=== PATIENT | male | born 1970 | race Caucasian/White ===

== ENCOUNTER → 2017-02-12 | Outpatient (CLI) | payer BC ==
--- NOTE | 2017-02-12 22:09 | PN ---
DATE OF SERVICE: 02/12/2017 This is a 46-year-old gentleman who has been followed in the sleep center for treatment of obstructive sleep apnea/hypopnea syndrome. I checked patient's CPAP unit. Patient continued to use equipment very well, 26 out of 30 nights for more than 4 hours. I checked data for 3 months; use for more than 4 hours was 80 out of 99. Average apnea-hypopnea index reading for 3 months is 5.8, which is in the acceptable range. Leak is around 16 L/minute, which is acceptable. [place] Sleepiness Scale today is 5, which is normal. MEDICATIONS: None. During physical exam, patient is in no distress. VITAL SIGNS: BP 104/65, HR 59, RR 14. Height 72 inches. Weight 189.4. BMI 25.6. Temperature 97.5. Oxygen saturation at room air 96%. HEENT: PERRLA, EOMI. Evaluation of oropharynx showed tongue protrudes midline; moderately low position of soft palate. NECK: Supple. No JVD. Thyroid is not palpable. LUNGS: Clear to percussion and to auscultation. Good air exchange. No wheezing or rhonchi. HEART: S1, S2 regular. No murmurs, gallops or rubs. ABDOMEN: Soft and nontender. Bowel sounds are present. No organomegaly appreciated. EXTREMITIES: No clubbing or cyanosis. CIRCULATION MAN: Awake, alert, and oriented x3. Cranial nerves 2 to 7 intact. There is no fasciculation or atrophy noted. No focal deficits observed. IMPRESSION: 1. Moderate obstructive sleep apnea-hypopnea syndrome. Apnea-hypopnea index 17.7, mostly under control with CPAP at 9 cm of water. Patient has demonstrated good compliance with treatment, benefitting from treatment. 2. Seasonal allergies. 3. History of erectile dysfunction. 4. Status post tonsillectomy. 5. Possible nasal septum deviation. PLAN: 1. Continue treatment with CPAP at the same pressure of 9 cm of water. 2. Watching weight. 3. Sleep hygiene with regular time in bed for at least 8 hours. 4. No driving if feeling any sleepiness. 5. Prescription for all necessary supplies. Thank you very much for allowing me to participate in the management of your patient. Sincerely, Dallas Dorman MD, PhD, FAASM. Diplomat of [place] Board [employer] Medicine, Sleep Medicine Board by [place] [employer], [place] Board of Internal Medicine
== END | disposition home or self-care (01) ==
LOC: SLEEP 14:19
PROVIDERS: ATTEND Internal Medicine
DX: G47.33 Obstructive sleep apnea (adult) (pediatric) (principal); Z99.89 Dependence on other enabling machines and devices

== ENCOUNTER → 2018-03-19 | Outpatient (CLI) | payer BC ==
--- NOTE | 2018-03-19 11:09 | SFUN ---
SLEEP CENTER FOLLOW UP NOTE DATE OF SERVICE: 03/19/2018 This 47-year-old gentleman has been followed in sleep center for treatment of moderate obstructive sleep apnea-hypopnea syndrome. The patient was started on treatment with CPAP in 2016, and he is on that therapy practically every night without significant problem except sometimes when he has the flu he cannot breathe through his nose. [place] Sleepiness Scale today is 3. Patient medication is Cialis occasionally. I checked patient's CPAP unit. CPAP pressure 9 cm of water as it was recommended after the last titration. Usage 23 out of 30 nights for more than 4 hours, which is normal range of usage. Average usage 6.3 hours. Leak is 14 L/minute, which is acceptable. Apnea-hypopnea index 3.5, which is in normal range. PHYSICAL EXAMINATION: During physical exam, the patient in no distress. VITAL SIGNS: BP 110/72, HR 51, RR 14, height 6 feet 0 inch, weight 192.0, BMI 26.0 oxygen saturation room air 99%. Temperature 97.7. HEENT PERRLA, EOMI, evaluation of oropharynx moderately low position of soft palate. Slight restriction of nasal breathing. NECK: Supple, no JVD. Thyroid is not palpable. LUNGS: Clear to percussion and to auscultation. Good air exchange. No wheezing or rhonchi. HEART: S1, S2 regular. No murmurs, gallops, or rubs. ABDOMEN: Soft and nontender. Bowel sounds are present. No organomegaly appreciated. EXTREMITIES: No clubbing or cyanosis. AUDIO/VISUAL MANAGER: Awake, alert, and oriented X3. Cranial nerves 2 to 7 intact. There is no fasciculation or atrophy. noted. No focal deficits observed. IMPRESSION: 1. Obstructive sleep apnea-hypopnea syndrome in moderate range. Apnea-hypopnea index 17.7, mostly on control with CPAP at 9 cm of water. Patient demonstrated good compliance with treatment. Benefitting from treatment. 2. Possible nasal septum deviation. 3. History of erectile dysfunction, slightly better on treatment with CPAP. 4. Seasonal allergies. 5. Status post tonsillectomy. PLAN: 1. Prescription for all necessary CPAP supplies including mask, tube, filters. 2. Continue CPAP therapy every night for the whole night. 3. Sleep hygiene with regular time in bed for at least 8 hours. 4. No driving if feeling sleepiness. 5. Followup visit in 1 year or earlier if patient has any problems. Thank you very much for allowing me to participate in management of your patient. Sincerely, Dallas Dorman MD, PhD, FAASM Diplomat of [place] [employer] Specialties [place] [employer] of Internal Medicine Monumental Stonemason of [facility] [place] MMODL / WAGNERN: [id number] /
== END | disposition home or self-care (01) ==
LOC: SLEEP 09:57
PROVIDERS: ATTEND Internal Medicine
DX: G47.33 Obstructive sleep apnea (adult) (pediatric) (principal); N52.9 Male erectile dysfunction, unspecified; J30.2 Other seasonal allergic rhinitis; Z99.89 Dependence on other enabling machines and devices; Z90.89 Acquired absence of other organs

== ENCOUNTER → 2019-04-01 | Outpatient (CLI) | payer BC ==
--- NOTE | 2019-04-01 17:42 | PN ---
PROGRESS NOTE DATE OF SERVICE: 04/01/2019 This patient is a 49-year-old gentleman who has been followed in Sleep Center for treatment of obstructive sleep apnea-hypopnea syndrome. Last time I saw the patient was one year ago. The patient has continued to use equipment every night for the whole night without significant problems related to mask fitting, pressure or humidification. [place] Sleepiness Scale today is 2. I checked his CPAP unit. CPAP pressure is 9 cm of water. Usage is every night, and in 28/30 nights for more than 4 hours. Average usage is 6.6 hours, which is within normal range. Leak is 18 L/minute, which is acceptable. Apnea-hypopnea index is 2.7, which is in normal range. MEDICATIONS: Cialis occasionally. PHYSICAL EXAMINATION: GENERAL: A pleasant patient in no distress. VITAL SIGNS: BP 115/70, HR 56, RR 16, height 6 feet, weight 190.4 pounds, body mass index 25.7, temperature 97.3, oxygen saturation at room air 98%. HEENT: PERRLA, EOMI. Evaluation of oropharynx showed tongue protrudes midline. Moderately low position of soft palate. NECK: Supple. No JVD. Thyroid is not palpable. LUNGS: Clear to percussion and to auscultation. Good air exchange. No wheezing or rhonchi. HEART: S1, S2 regular. No murmurs, gallops or rubs. ABDOMEN: Soft and nontender. Bowel sounds are present. No organomegaly. EXTREMITIES: No clubbing or cyanosis. SAS ANALYST: Awake, alert, and oriented X3. Cranial nerves 2 to 7 intact. There is no fasciculation or atrophy. noted. No focal deficits observed. IMPRESSION: 1. Moderate obstructive sleep apnea-hypopnea syndrome with apnea/hypopnea index of 17.7. The patient demonstrated great compliance with treatment, benefitting from treatment. 2. History of erectile dysfunction. 3. Seasonal allergies. 4. Possible nasal septum deviation. 5. Status post tonsillectomy. PLAN: 1. Patient will continue to use CPAP equipment every night for the whole night. 2. Prescription for all necessary CPAP supplies, including nasal mask, tube, filters. 3. Sleep hygiene with regular time in bed for at least 8 hours. 4. No driving if feeling any sleepiness. 5. Follow-up visit in one year, or earlier if patient has any problems. Thank you very much for allowing me to participate in the management of your patient. Sincerely, Dallas Dorman MD, PhD, FAASM Diplomat of [place] [employer] Specialties [place] Board of Internal Medicine Treating Inspector of [facility] [place] ALEJANDRA / NICANOR: [id number] /
== END ==
LOC: SLEEP 15:42
PROVIDERS: ATTEND Internal Medicine
DX: G47.33 Obstructive sleep apnea (adult) (pediatric) (principal); J30.2 Other seasonal allergic rhinitis; Z90.89 Acquired absence of other organs; Z87.438 Personal history of other diseases of male genital organs; Z99.89 Dependence on other enabling machines and devices; Z79.899 Other long term (current) drug therapy

== ENCOUNTER → 2023-07-30 | Outpatient (CLI) | payer BC ==
--- NOTE | 2023-07-30 12:30 | P.SLEEP ---
History of Present Illness DATE: 08/01/2023 CONSULTATION/NEW PATIENT EVALUATION HISTORY OF PRESENT ILLNESS/SLEEP-WAKE EVALUATION: 53-year-old gentleman had been evaluated in the sleep center for obstructive sleep apnea hypopnea syndrome. Last time I so patient in sleep center on 04/01/2019 for treatment of obstructive sleep apnea hypopnea syndrome. Patient continued to use his CPAP equipment every night for the whole night. I checked CPAP unit. CPAP pressure is 9 cm of water, usage is 100% of nights, average 8.4 hours per night. Leak is 11 L/m which is acceptable. Apnea-hypopnea index is 3.7 which is normal. SLEEP SCHEDULE: Usually sleep schedule from 10 PM to 6 AM 7 days a week. FALLING ASLEEP: No problems with falling asleep. DURING SLEEP: No snoring while using CPAP. Patient wakes up from sleep up to 3 times with nocturia. No history of hypnogogical hallucinations, sleep paralysis, or cataplexy. DURING THE DAY/WAKE STATE: In the morning patient feels refreshed. [place] sleepiness scale is 3. Patient doesn't take naps. PAST MEDICAL HISTORY: Seasonal ALLERGY. PAST SURGICAL HISTORY: Tonsillectomy, surgery for nasal septum deviation. MEDICATIONS: None at the present time. SOCIAL HISTORY: Negative for smoking, alcohol consumption occasional. FAMILY HISTORY: Heart problems, hyperlipidemia. REVIEW OF SYSTEMS: No snoring with CPAP, nocturia up to 3 times. No fevers. No double vision. No recent chest pain. No shortness of breath. No abdominal pain. No bleeding episodes. No blood in urine. No seizure episodes. PHYSICAL EXAMINATION: GENERAL: A pleasant patient without any distress. VITAL SIGNS: BP 135/79, HR 68, RR 12, weight 182.0 pounds, height 5 foot 11.5 inches, body mass index 25. HEENT: PERRLA, EOMI. Evaluation of oropharynx showed tongue protrudes midline, low position of soft palate Mallampati 3, short distance between soft palate and posterior pharyngeal wall. NECK: Supple. No JVD. Thyroid is not palpable. 15.5 inches in circumference. LUNGS: Clear to percussion and to auscultation. Good air exchange. No wheezing or rhonchi. HEART: S1, S2 regular. No murmurs, gallops or rubs. ABDOMEN: Soft and nontender. Bowel sounds are present. No organomegaly appreciated. EXTREMITIES: No clubbing or cyanosis. INSTRUCTOR PROGRAMMABLE CONTROLLERS: Awake, alert, and oriented x3. Cranial nerves 2 to 7 intact. There is no fasciculation or atrophy noted. No focal deficits observed. ASSESSMENT: 1. Obstructive sleep apnea hypopnea syndrome for many years, patient continued to use his CPAP equipment every night for the whole night. CPAP unit is old. 2. Seasonal ALLERGY. 3. Status post tonsillectomy. 4. Status post surgical treatment for nasal septum deviation. PLAN: 1. Prescription to replace CPAP to AutoPAP with range of pressure 8-11 cm of water. 2. Follow-up visit in 31-90 days after patient will get new CPAP equipment check compliance and make any necessary adjustments 3. Preferable position during sleep on the side. 4. No driving if patient feels any sleepiness. Patient is aware of civil and criminal liability for unsafe driving. 5. Sleep hygiene with regular sleep time for at least 7.5-8 h ours. 6. Watching weight. Thank you very much for referring this patient for consultation. Sincerely, Dallas Dorman MD, PhD, FAASM. Diplomat of [place] Board of Sleep Medicine, Sleep Medicine Board by [place] [employer] Medical Specialities [place] Board of Internal Medicine Systems Integration Advisor of [facility] [place] Past Medical History Past Medical History: Skin Disorder History of Any Multi-Drug Resistant Organisms: None Reported Past Surgical History: Tonsillectomy Past Anesthesia/Blood Transfusion Reactions: No Reported Reaction Past Alcohol Use History: Occasional Additional Past Alcohol Use History / Comment(s): 5 BEERS PER WK AVG EST Past Drug Use History: None Reported Medications and Allergies Home Medications Medication Instructions Recorded Confirmed Type tadalafiL [Cialis] 5 mg PO DIRECTED PRN 08/29/14 08/31/14 History Allergies Allergy/AdvReac Type Severity Reaction Status Date / Time No Known Allergies Allergy Verified 08/29/14 15:24 Sleep Note - Sleep Note Sleep Note: Temperature: Pulse Rate: Respiratory Rate: Blood Pressure: SpO2: Height: Weight: BMI: Neck Circumference:
== END ==
LOC: 3 N SLEEP 10:54
PROVIDERS: ATTEND Internal Medicine
DX: G47.33 Obstructive sleep apnea (adult) (pediatric) (principal); J30.2 Other seasonal allergic rhinitis; Z98.890 Other specified postprocedural states; Z90.89 Acquired absence of other organs
CPT/HCPCS: 99202

== ENCOUNTER → 2023-11-10 | Outpatient (CLI) | payer BC ==
--- NOTE | 2023-11-10 11:02 | P.PN ---
Subjective DATE: [] FOLLOW UP VISIT. Patient with obstructive sleep apnea hypopnea syndrome return to sleep center for follow-up visit. This is first visit after patient received new CPAP equipment. Patient was able to use PAP equipment every night for the whole night. The patient does not have significant problems with the mask, PAP pressure and h umidification. [place] sleepiness scale is 3, which is normal. I checked information from PAP unit. PAP unit pressure 7-9, average 8.9 cm H2O. Usage is 100 % for more then 4 hours, average 8 hours per night. Leak is minimal 2.3 l/m. Apnea Hypopnea Index is 3.0, which is normal. MEDICATIONS: None at the present time During physical exam: GENERAL: A pleasant patient without any distress. VITAL SIGNS: BP 122/80, HR 59, RR 16 , weight 190.2, temperature 98.5, oxygen saturation at room air 99% . HEENT: PERRLA, EOMI.low position of soft palate, Mallapati 3 . NECK: Supple. No JVD. LUNGS: Clear to percussion and to auscultation. Good air exchange. No wheezing or rhonchi. HEART: S1, S2 regular. ABDOMEN: Soft and nontender.[] EXTREMITIES: No clubbing or cyanosis. PROFESSIONAL POKER PLAYER: Awake, alert, and oriented x3. No focal deficit. Impressions: 1. Obstructive sleep apnea-hypopnea syndrome. Patient demonstrated great compliance with treatment, benefiting from treatment. 2. Seasonal ALLERGY. 3. Status post tonsillectomy. 4. Status post surgical treatment for nasal septum deviation. Plan: 1. Continue using PAP equipment every night for the whole night. 2. To change air filter at least 1-2 times per month. 3. PAP unit should stay lower then position of the head. 4. Advised patient to remove all remaining water from humidifier canister daily and make it dry after each usage. Refill canister with fresh distilled water before each usage. 5. Sleep hygiene with regular time in bed for at least 8 hours. 6. Precautions related to driving. No driving if feel any sleepiness. 7. I will maintain prescription for PAP supplies including mask, tube, filters. 8. Follow up visit in 6 months or earlier if patient has any problems. 9. Watching weight. Thank you very much for allowing me to participate in the management of your patient. Dallas Dorman MD, PhD, FAASM. Diplomat of [place] Board of Sleep Medicine, Sleep Medicine Board by [place] Board of Internal Medicine Java Development Team Lead of [facility] [place]
== END ==
LOC: 3 N SLEEP 10:00
PROVIDERS: ATTEND Internal Medicine
DX: G47.33 Obstructive sleep apnea (adult) (pediatric) (principal); J30.2 Other seasonal allergic rhinitis; Z98.890 Other specified postprocedural states; Z90.89 Acquired absence of other organs; Z99.89 Dependence on other enabling machines and devices
CPT/HCPCS: 99212

== ENCOUNTER → 2024-06-10 | Outpatient (CLI) | payer BC ==
[2024-06-10 10:48] VITALS: BP 119/77; PULSE 55; RESP 16; TEMP 97.6
--- NOTE | 2024-06-10 10:56 | P.PROGSL ---
Subjective DATE: 06/10/2024 FOLLOW UP VISIT. Patient with obstructive sleep apnea hypopnea syndrome return to sleep center for follow-up visit. Information from previous visit have been reviewed. Patient is using PAP equipment every night for the whole night, getting PAP supplies in time. The patient does not have significant problems with the mask, PAP unit and humidification. [place] sleepiness scale is 4, which is normal. I checked information from PAP unit. PAP unit pressure 7-9, average 8.9 cm H2O. Usage is 100% for more then 4 hours, average 7.3 hours per night. Leak is []l/m, which is in acceptable range. Apnea Hypopnea Index is 3.6, which is normal. MEDICATIONS have been reviewed, please see below. During physical exam: GENERAL: A pleasant patient without any distress. VITAL SIGNS: Please see below, weight is 176.4 lbs. HEENT: PERRLA, EOMI.low position of soft palate, Mallapati 3. NECK: Supple. No JVD. LUNGS: Clear to percussion and to auscultation. Good air exchange. No wheezing or rhonchi. HEART: S1, S2 regular. ABDOMEN: Soft and nontender.[] EXTREMITIES: No clubbing or cyanosis. COMPLIANCE REPRESENTATIVE DEALER: Awake, alert, and oriented x3. No focal deficit. Impressions: 1. Obstructive sleep apnea-hypopnea syndrome. Patient demonstrated great compliance with treatment, benefiting from treatment. 2. Seasonal allergy. 3. Status post tonsillectomy. 4. Status post surgical treatment for nasal septum deviation. Plan: 1. Continue using PAP equipment every night for the whole night. 2. Sleep hygiene with regular time in bed for at least 7.5-8 hours 3. PAP unit should stay lower then position of the head. 4. Advised patient to remove all remaining water from humidifier canister daily and make it dry after each usage. Refill canister with fresh distilled water before each usage. 5. Watching weight. 6. Precautions related to driving. No driving if feel any sleepiness. 7. I will maintain prescription for PAP supplies including mask, tube, filters. 8. Follow up visit in 6 months or earlier if patient has any problems. Thank you very much for allowing me to participate in the management of your patient. Dallas Dorman MD, PhD, FAASM. Diplomat of [place] Board of Sleep Medicine, Sleep Medicine Board by [place] Board of Internal Medicine Digital Print Operator of [facility] [place] Objective - Vital Signs Vital Signs: Vital Signs Temp 97.6 F 06/10/24 10:47 Pulse 55 L 06/10/24 10:47 Resp 16 06/10/24 10:47 BP 119/77 06/10/24 10:47 Pulse Ox 99 06/10/24 10:47 FiO2 Intake & Output 06/09/24 06/10/24 06/10/24 18:59 06:59 18:59 Weight 79.832 kg Home Medications: Home Medications Medication Instructions Recorded Confirmed Type tadalafiL [Cialis] 5 mg PO DIRECTED PRN 08/29/14 08/31/14 History
== END ==
LOC: 3 N SLEEP 10:37
PROVIDERS: ATTEND Internal Medicine
DX: G47.33 Obstructive sleep apnea (adult) (pediatric) (principal); J30.2 Other seasonal allergic rhinitis; Z98.890 Other specified postprocedural states; Z90.89 Acquired absence of other organs; Z99.89 Dependence on other enabling machines and devices
CPT/HCPCS: 99212

== ENCOUNTER 2024-10-08 12:24 | Day surgery (SDC) | payer BC ==
[2024-10-06 16:17] VITALS: BMI 24.4
[2024-10-08 13:22] VITALS: RESP 16; TEMP 97.5
[2024-10-08] MEDS: IV FLUID CONTINUATION 1,000 ML IV ONE (13:22)
[2024-10-08] MEDS: LACTATED RINGERS 1,000 ML IV SCH (13:23)
[2024-10-08] MEDS ORDERED: PROPOFOL 10 MG/ML 20 ML VIAL IV ONE (13:57)
[2024-10-08] MEDS ORDERED: LIDOCAINE 1% INJ 10MG/ML (20 ML MDV) ONE (13:57)
--- NOTE | 2024-10-08 14:20 | P.PCN ---
Date of Procedure: 10/08/24 Procedure(s) Performed: BRIEF HISTORY: Patient is a 54-year-old pleasant white male scheduled for an elective colonoscopy as a part of screening for colon cancer. PROCEDURE PERFORMED: Colonoscopy with biopsy. PREOPERATIVE DIAGNOSIS: Screening for colon cancer. IV sedation per Anesthesia. PROCEDURE: After informed consent was obtained, the patient, was brought into the endoscopy unit. IV sedation was administered by Anesthesia under continuous monitoring. Digital rectal examination was normal. Initially the Olympus CF-160 flexible video colonoscope was then inserted in the rectum, gradually advanced into the cecum without any difficulty. Careful examination was performed as the scope was gradually being withdrawn. Ileocecal valve and the appendiceal orifice were visualized and appeared normal. Prep was excellent. Mucosa of the cecum, had a 4 mm sessile polyp that was removed by cold biopsy. Rest of the ascending colon, transverse colon, descending colon, sigmoid colon, and rectum appeared normal. Retroflexion was performed in the rectum and no lesions were seen. Sigmoid diverticulosis the patient tolerated the procedure well. IMPRESSION: 4 mm cecal polyp status post removal by cold biopsy Scattered sigmoid diverticulosis Rest of the colon appeared normal RECOMMENDATIONS: Findings of this examination were discussed with the patient as well as his family. He was advised to follow-up with the biopsy results. If the biopsy reveals adenoma he can have repeat colonoscopy in 5 years.
[2024-10-08 14:39] VITALS: BP 103/71; PULSE 53
== END 2024-10-08 14:53 | disposition home or self-care (01) ==
LOC: ORWHC2ENDO 12:24
PROVIDERS: ATTEND Internal Medicine Gastroenterology
DX: Z12.11 Encounter for screening for malignant neoplasm of colon (principal); D12.0 Benign neoplasm of cecum; K57.30 Diverticulosis of large intestine without perforation or abscess without bleeding; G47.33 Obstructive sleep apnea (adult) (pediatric); Z79.899 Other long term (current) drug therapy; Z90.89 Acquired absence of other organs
CPT/HCPCS: 88305; 45380; J2003; J2704

== ENCOUNTER → 2025-02-17 | Outpatient (CLI) | payer BC ==
[2025-02-17 10:28] VITALS: BP 113/76; PULSE 58; RESP 16; TEMP 97.9
--- NOTE | 2025-02-17 11:07 | P.PROGSL ---
Subjective DATE: 02/17/2025 FOLLOW UP VISIT. Patient with obstructive sleep apnea hypopnea syndrome return to sleep center for follow-up visit. Information from previous visit have been reviewed. Patient is using PAP equipment every night for the whole night, getting PAP supplies in time. The patient does not have significant problems with the mask, PAP unit and humidification. [place] sleepiness scale is 3, which is normal. I checked information from PAP unit. PAP unit pressure 7-9, average 8.9 cm H2O. Usage is 100% for more then 4 hours, average 8.2 hours per night. Leak is 5 l/m, which is in acceptable range. Apnea Hypopnea Index is 3.6, which is normal. MEDICATIONS have been reviewed, please see below. During physical exam: GENERAL: A pleasant patient without any distress. VITAL SIGNS: Please see below, weight is 180 lbs. HEENT: PERRLA, EOMI.low position of soft palate, Mallapati 3. NECK: Supple. No JVD. LUNGS: Clear to percussion and to auscultation. Good air exchange. No wheezing or rhonchi. HEART: S1, S2 regular. ABDOMEN: Soft and nontender.[] EXTREMITIES: No clubbing or cyanosis. LIFT BUILDER WHOLE: Awake, alert, and oriented x3. No focal deficit. Impressions: 1. Obstructive sleep apnea-hypopnea syndrome. Patient demonstrated great compliance with treatment, benefiting from treatment. 2. Seasonal allergy. 3. Status post tonsillectomy. 4. Status post surgery for nasal septum deviation. Plan: 1. Continue using PAP equipment every night for the whole night. 2. Sleep hygiene with regular time in bed for at least 7.5-8 hours 3. PAP unit should stay lower then position of the head. 4. Advised patient to remove all remaining water from humidifier canister daily and make it dry after each usage. Refill canister with fresh distilled water before each usage. 5. Watching weight. 6. Precautions related to driving. No driving if feel any sleepiness. 7. I will maintain prescription for PAP supplies including mask, tube, filters. 8. Follow up visit in 8 months or earlier if patient has any problems. Thank you very much for allowing me to participate in the management of your patient. Dallas Dorman MD, PhD, FAASM. Diplomat of [place] Board of Sleep Medicine, Sleep Medicine Board by [place] Board of Internal Medicine Marketing Planning Manager of [facility] [place] Objective - Vital Signs Vital Signs: Vital Signs Temp 97.9 F 02/17/25 10:27 Pulse 58 L 02/17/25 10:27 Resp 16 02/17/25 10:27 BP 113/76 02/17/25 10:27 Pulse Ox 100 02/17/25 10:27 FiO2 Intake & Output 02/16/25 02/17/25 02/17/25 18:59 06:59 18:59 Weight 81.647 kg Home Medications: Home Medications Medication Instructions Recorded Confirmed Type tadalafiL [Cialis] 5 mg PO DIRECTED PRN 08/29/14 10/08/24 History Vit D(Unknown Dose) 1 dose PO QAM 10/06/24 10/08/24 History Zyrtec(Unknown Dose) 1 dose PO QAM PRN 10/06/24 10/08/24 History
== END ==
LOC: 3 N SLEEP 10:13
PROVIDERS: ATTEND Internal Medicine
DX: G47.33 Obstructive sleep apnea (adult) (pediatric) (principal); J30.2 Other seasonal allergic rhinitis; Z90.89 Acquired absence of other organs; Z98.890 Other specified postprocedural states
CPT/HCPCS: 99212